=== PATIENT | male | born 1945 | race Caucasian/White ===

== ENCOUNTER 2019-05-11 13:20 | Emergency (ER) | payer MEDICARE ==
[~2019-05-11] VITALS: Ht 172.7 cm; Wt 80.6 kg
[2019-05-11 13:27] VITALS: BP 163/88
[2019-05-11] MEDS ORDERED: PROPARACAINE OPHTH 0.5%, 15ML ONE (13:50)
[2019-05-11] MEDS ORDERED: FLUORESCEIN OPHTHALMIC 1 MG STRIP ONE (13:50)
--- NOTE | 2019-05-11 14:08 | NUR ---
PT WITH METAL IN R EYE, HE WAS WELDING AND GRINDING AND GOT SOME METAL FRAGMENTS IN HIS EYE. PT WITH PAIN TO EYE, NO OTHER COMPLAINTS
== END 2019-05-11 14:35 | disposition home or self-care (01) ==
LOC: ED 14:15
DX: T15.02XA Foreign body in cornea, left eye, initial encounter (principal); W31.1XXA Contact with metalworking machines, initial encounter; Y93.89 Activity, other specified; Y92.009 Unspecified place in unspecified non-institutional (private) residence as the place of occurrence of the external cause; Y99.8 Other external cause status
CPT/HCPCS: 65220; 99284

== ENCOUNTER 2020-07-18 07:38 | Outpatient (CLI) | payer MEDICARE | END 2020-07-18 23:59 | disposition home or self-care (01) | LOC: ROC 07:38 | PROVIDERS: ATTEND Radiology Radiation Oncology | DX: C21.1 Malignant neoplasm of anal canal (principal) | CPT/HCPCS: 99214; G0463 ==

== ENCOUNTER 2020-07-21 11:06 | Outpatient (CLI) | payer MEDICARE ==
[2020-07-21] MEDS ORDERED: SAW PALMETTO PO (12:15)
[2020-07-21] MEDS ORDERED: MULT-658 PO (12:15)
[2020-07-21] MEDS ORDERED: IBUP-1902 PO (12:15)
[2020-07-21] MEDS ORDERED: ALLERGY RELIEF PO (12:15)
[2020-07-21] MEDS ORDERED: ASPI81TA45 PO (12:15)
== END 2020-07-21 23:59 | disposition home or self-care (01) ==
LOC: STAR 11:06
PROVIDERS: ATTEND Colon & Rectal Surgery
DX: Z02.9 Encounter for administrative examinations, unspecified (principal)
CPT/HCPCS: 93005; U0003

== ENCOUNTER 2020-07-23 06:00 | Day surgery (SDC) | payer MEDICARE ==
[~2020-07-23] VITALS: Ht 172.7 cm; Wt 74.0 kg
[~2020-07-23 06:00] MED LIST: ALLERGY RELIEF PO; ASPI81TA45 PO; IBUP-1902 PO; MULT-658 PO; SAW PALMETTO PO
[2020-07-23 06:47] VITALS: BP 146/93
[2020-07-23] MEDS ORDERED: HEPARIN 1,000 UNITS/ML, 10ML ONE (06:49)
[2020-07-23] MEDS ORDERED: BUPIVACAINE/PF 0.5% ONE (06:49)
[2020-07-23] MEDS ORDERED: EPINEPHRINE 1 MG/ML, 1ML ONE (06:49)
[2020-07-23] MEDS ORDERED: CHLORHEXIDINE 15 ML UDC MM ONE (07:00)
[2020-07-23] MEDS ORDERED: LACTATED RINGERS 1,000 ML IV SCH (07:00)
[2020-07-23] MEDS ORDERED: OMEP40CA42 PO (07:13)
[2020-07-23] MEDS ORDERED: VITA1CAP7 PO (07:13)
[2020-07-23] MEDS ORDERED: CHOL10003 PO (07:13)
[2020-07-23] MEDS ORDERED: ASCO100018 PO (07:13)
[2020-07-23] MEDS ORDERED: MIDAZOLAM 1 MG/ML, 2ML ONE (07:15)
[2020-07-23] MEDS ORDERED: FENTANYL PF 100 MCG/2ML ONE (07:15)
[2020-07-23] MEDS ORDERED: OXYcodone 5 MG/5 ML ORAL.SOL UDC PO PRN (07:30)
[2020-07-23] MEDS ORDERED: PROMETHAZINE 25 MG/ML, 1ML IVPush PRN (07:30)
[2020-07-23] MEDS ORDERED: ONDANSETRON 2MG/ML, 2ML IVPush PRN (07:30)
[2020-07-23] MEDS ORDERED: MEPERIDINE/PF 25MG/0.5ML IVPush PRN (07:30)
[2020-07-23] MEDS ORDERED: HYDROcodone/APAP 7.5-325MG/15ML UDC PO PRN (07:30)
[2020-07-23] MEDS ORDERED: FENTANYL PF 100 MCG/2ML IV PRN (07:30)
[2020-07-23] MEDS ORDERED: HYDROmorphone 1 MG/ML, 1ML INJ IVPush PRN (07:30)
[2020-07-23] MEDS ORDERED: LIDOCAINE-MPF 1%, 2ML ONE (07:34)
[2020-07-23] MEDS ORDERED: PHENYLEPHRINE 10 MG/ML ONE (07:34)
[2020-07-23] MEDS ORDERED: CEFAZOLIN 1,000 MG ONE (07:34)
[2020-07-23] MEDS ORDERED: ONDANSETRON 2MG/ML, 2ML ONE (07:34)
[2020-07-23] MEDS ORDERED: DEXAMETHASONE 4 MG/ML, 1ML ONE (07:34)
[2020-07-23] MEDS ORDERED: PROPOFOL 10 MG/ML, 20ML ONE (07:34)
[2020-07-23] MEDS ORDERED: HEPARIN 1,000 UNITS/ML, 10ML IV ONE (07:54)
== END 2020-07-23 10:15 | disposition home or self-care (01) ==
LOC: OUT 06:00
PROVIDERS: ATTEND Colon & Rectal Surgery
DX: C21.1 Malignant neoplasm of anal canal (principal); K21.9 Gastro-esophageal reflux disease without esophagitis; K59.00 Constipation, unspecified; Z79.82 Long term (current) use of aspirin; Z79.899 Other long term (current) drug therapy; Z90.49 Acquired absence of other specified parts of digestive tract; Z98.890 Other specified postprocedural states; Z80.3 Family history of malignant neoplasm of breast; Z80.42 Family history of malignant neoplasm of prostate
CPT/HCPCS: 36561; 77001; C1788; J0171; J0690; J1100; J1644; J2250; J2370; J2405; J2704; J3010; J7120

== ENCOUNTER 2020-09-16 08:57 | Outpatient (CLI) | payer MEDICARE ==
[~2020-09-16 08:57] MED LIST changes: +ASCO100018 PO; +CHOL10003 PO; +OMEP40CA42 PO; +VITA1CAP7 PO
== END 2020-09-16 23:59 | disposition home or self-care (01) ==
LOC: ROC 08:57
PROVIDERS: ATTEND Radiology Radiation Oncology
DX: C21.1 Malignant neoplasm of anal canal (principal); K21.9 Gastro-esophageal reflux disease without esophagitis; Z79.82 Long term (current) use of aspirin; Z79.899 Other long term (current) drug therapy; Z90.49 Acquired absence of other specified parts of digestive tract
CPT/HCPCS: 99213; G0463

== ENCOUNTER 2020-09-16 16:17 | Emergency (ER) | payer MEDICARE ==
[~2020-09-16] VITALS: Ht 172.7 cm; Wt 71.4 kg
[2020-09-16 16:19] VITALS: BP 114/66
[2020-09-16] MEDS ORDERED: OMNIPAQUE 350 MG/ML, 75ML BOTTLE ONE (17:05)
[2020-09-16 17:21] LABS: MEAN CORPUSCULAR HEMOGLOBIN 33.1 pg (27.5-34.5); MEAN CORPUSCULAR HGB CONC 35.4 g/dL (33.2-36.2); MEAN PLATELET VOLUME 6.5 fL (7.4-10.4); PLATELET COUNT 153 x10^3/uL (130-400); RED BLOOD COUNT 3.16 x10^6/uL (4.38-5.82); RED CELL DISTRIBUTION WIDTH 13.4 % (9.4-14.8)
[2020-09-16 17:32] LABS: ALANINE AMINOTRANSFERASE 29 U/L (12-78); ALBUMIN 2.9 g/dL (3.4-5.0); ANION GAP 7 mmol/L (5-15); CALCIUM 8.6 mg/dL (8.5-10.1); CHLORIDE 98 mmol/L (98-107)
[2020-09-16 17:37] LABS: ALKALINE PHOSPHATASE 124 U/L (45-117); BILIRUBIN,TOTAL 0.6 mg/dL (0.2-1.0); CREATININE 1.25 mg/dL (0.7-1.3); TOTAL PROTEIN 6.9 g/dL (6.4-8.2)
[2020-09-16 18:11] LABS: MD YES
[2020-09-16 18:15] LABS: BANDS%(MANUAL) 17 % (0-7); LYMPH#(MANUAL) 0.62 x10^3/uL (1-3.4); LYMPHS% (MANUAL) 15 % (22-44); METAMYELOCYTES# (MANUAL) 0.21 x10^3/uL (0-0); METAMYELOCYTES% (MANUAL) 5 % (0-1); MONOS#(MANUAL) 0.57 x10^3/uL (0.3-2.7); MONOS% (MANUAL) 14 % (2-9); REACTIVE LYMPHS # (MANUAL) 0.12 x10^3/uL (0-0); REACTIVE LYMPHS % (MANUAL) 3 % (0-0); SEG#(MANUAL) 1.89 x10^3/uL (1.8-6.8); SEGS% (MANUAL) 46 % (42-75)
[2020-09-16 18:16] LABS: TOXIC GRAN 1+
[2020-09-16 18:17] LABS: <PLATELET ESTIMATE> ADEQUATE; <PLT MORPHOLOGY> NORMAL PLT MORPH; <RBC MORPHOLOGY> NORMAL
== END 2020-09-16 19:46 | disposition home or self-care (01) ==
LOC: ED 19:30
DX: D64.9 Anemia, unspecified (principal); D72.825 Bandemia; R00.0 Tachycardia, unspecified; Z85.048 Personal history of other malignant neoplasm of rectum, rectosigmoid junction, and anus
CPT/HCPCS: 36415; 71275; 80053; 83880; 85025; 93005; 99285; Q9967

== ENCOUNTER 2020-09-18 13:28 | Outpatient (CLI) | payer MEDICARE ==
[2020-09-18] MEDS ORDERED: VISIPAQUE 270 MG/ML, 50ML BOTTLE ONE (14:41)
== END 2020-09-18 23:59 | disposition home or self-care (01) ==
LOC: RAD 13:28
PROVIDERS: ATTEND Internal Medicine Hematology & Oncology
DX: C21.1 Malignant neoplasm of anal canal (principal)
CPT/HCPCS: 36598; J1642; Q9966; 76000

== ENCOUNTER 2020-10-03 08:16 | Outpatient (CLI) | payer MEDICARE | END 2020-10-03 23:59 | disposition home or self-care (01) | LOC: ROC 08:16 | PROVIDERS: ATTEND Radiology Radiation Oncology | DX: Z08 Encounter for follow-up examination after completed treatment for malignant neoplasm (principal); Z85.048 Personal history of other malignant neoplasm of rectum, rectosigmoid junction, and anus; K21.9 Gastro-esophageal reflux disease without esophagitis; Z79.82 Long term (current) use of aspirin; Z79.899 Other long term (current) drug therapy; Z98.890 Other specified postprocedural states | CPT/HCPCS: 99213; G0463 ==

== ENCOUNTER → 2020-11-07 | Outpatient (CLI) | payer MEDICARE | END | disposition home or self-care (01) | LOC: ROC 07:28 | PROVIDERS: ATTEND Radiology Radiation Oncology | DX: C21.1 Malignant neoplasm of anal canal (principal); K21.9 Gastro-esophageal reflux disease without esophagitis; Z79.82 Long term (current) use of aspirin; Z79.899 Other long term (current) drug therapy; Z90.49 Acquired absence of other specified parts of digestive tract | CPT/HCPCS: 99212; G0463 ==

== ENCOUNTER → 2021-02-06 | Outpatient (CLI) | payer MEDICARE ==
[~2021-02-06] MED LIST changes: -OMEP40CA42 PO; +OMEP40CA8 PO
== END | disposition home or self-care (01) ==
LOC: ROC 07:52
PROVIDERS: ATTEND Radiology Radiation Oncology
DX: Z08 Encounter for follow-up examination after completed treatment for malignant neoplasm (principal); Z85.048 Personal history of other malignant neoplasm of rectum, rectosigmoid junction, and anus
CPT/HCPCS: 99212; G0463